=== PATIENT | female | born 1950 | race Hispanic/Latino ===

== ENCOUNTER 2017-04-12 20:35 | Observation (INO) | payer MEDICARE ==
[~2017-04-12] VITALS: Ht 157.5 cm; Wt 69.4 kg
[2017-04-12] MEDS ORDERED: ASPIRIN 325 MG TABLET ONE (20:45)
[2017-04-12] MEDS ORDERED: ONDANSETRON HCL 4 MG/2 ML VIAL ONE (20:49)
[2017-04-12 20:58] LABS: BASOPHILS % (AUTO) 0.7 % (0.0-5.0); EOSINOPHILS % (AUTO) 3.3 % (0.0-8.0); HEMATOCRIT 40.1 % (36-48); LYMPHOCYTES % (AUTO) 41.1 % (21.0-51.0); MEAN CORPUSCULAR HEMOGLOBIN 30.9 pg (27.0-33.0); MEAN CORPUSCULAR HGB CONC 34.8 g/dL (32.0-36.0); MEAN CORPUSCULAR VOLUME 88.9 fL (79-99); MONOCYTES % (AUTO) 9.5 % (3.0-13.0); NEUTROPHILS % (AUTO) 45.4 % (40.0-77.0); PLATELET COUNT (AUTO) 241 K/uL (130-400); RED BLOOD CELL COUNT(AUTO) 4.51 MIL/uL (4.00-5.50); RED CELL DISTRIBUTION WIDTH 14.2 % (11.0-15.5); WHITE BLOOD COUNT (AUTO) 7.4 K/uL (4.8-10.8)
[2017-04-12 21:09] LABS: CREATININE 1.4 mg/dL (0.5-1.5); INR 0.92 (0.85-1.15); PARTIAL THROMBOPLASTIN TIME 23.6 SEC (26.3-35.5); POTASSIUM 3.3 mmol/L (3.5-5.1); PROTHROMBIN TIME 9.7 SEC (9.6-11.6)
[2017-04-12] MEDS ORDERED: NITROGLYCERIN 0.4 MG SL TAB SL ONE (21:14)
[2017-04-12 21:23] LABS: BILIRUBIN,TOTAL 0.3 mg/dL (0.2-1.0); CREATINE KINASE MB 1.5 ng/mL (0.5-3.6); TOTAL PROTEIN, SERUM 7.8 g/dL (6.0-8.3)
[2017-04-12] MEDS ORDERED: MORPHINE SULFATE 2 MG/ML 1ML SYG ONE (21:39)
[2017-04-12] MEDS ORDERED: MAG HYDROX/AL HYDROX/SIMETH ES 30 ML SUSP UDCUP ONE (22:14)
[2017-04-12] MEDS ORDERED: LIDOCAINE HCL 2% VISCOUS 15 ML UDCUP ONE (22:14)
[2017-04-12] MEDS ORDERED: IOPAMIDOL-370 75 ML VIAL IV ONE (22:46)
[2017-04-13] MEDS ORDERED: NITROGLYCERIN 1GM/1 INCH PACKET TD ONE ×2 (00:36→07:47)
[2017-04-13 02:45] LABS: CREATINE KINASE MB 1.6 ng/mL (0.5-3.6)
[2017-04-13] MEDS: NITROGLYCERIN 1GM/1 INCH PACKET TD SCH ×3 (06:00→16:55)
[2017-04-13] MEDS ORDERED: POTASSIUM CHLORIDE 20MEQ/100ML 100 ML IV PRN (07:45)
[2017-04-13] MEDS ORDERED: NITROGLYCERIN 0.4 MG SL TAB SL PRN (07:45)
[2017-04-13] MEDS ORDERED: NITROGLYCERIN 1GM/1 INCH PACKET TD SCH (07:45)
[2017-04-13] MEDS ORDERED: POTASSIUM CHLORIDE 20 MEQ ERTAB PO PRN (07:45)
[2017-04-13] MEDS ORDERED: POTASSIUM CHLORIDE 10% ELIXIR 20 MEQ/15 ML UDCUP PO PRN (07:45)
[2017-04-13] MEDS ORDERED: LIDOCAINE HCL-MPF 1% 2ML VIAL IVP PRN (07:45)
[2017-04-13] MEDS ORDERED: ONDANSETRON HCL 4 MG/2 ML VIAL IV PRN (07:45)
[2017-04-13] MEDS ORDERED: ACETAMINOPHEN 325 MG TAB PO PRN (07:45)
[2017-04-13] MEDS: FAMOTIDINE 20MG TAB 20 MG TAB PO SCH ×2 (09:00→20:42)
[2017-04-13] MEDS: ASPIRIN 325 MG TABLET PO SCH ×2 (09:00)
[2017-04-13] MEDS: ENOXAPARIN SODIUM 40 MG/0.4 ML SYRINGE SQ SCH (09:00)
[2017-04-13] MEDS: METOPROLOL TARTRATE 25 MG TAB PO SCH ×2 (09:00→20:42)
[2017-04-13] MEDS ORDERED: ASPIRIN 325 MG TABLET ONE (09:03)
[2017-04-13 09:36] LABS: CREATINE KINASE, TOTAL 173 U/L (21-232); MYOGLOBIN 27 ng/mL (10-92); TROPONIN I < 0.04 ng/mL (0.00-0.06)
[2017-04-13] MEDS ORDERED: ACETAMINOPHEN 325 MG TAB ONE (13:41)
[2017-04-13 14:00] VITALS: BP 122/67
[2017-04-13] MEDS ORDERED: LEVO100T4 PO (15:07)
[2017-04-13] MEDS ORDERED: ASPI-1197 PO (15:07)
[2017-04-13] MEDS ORDERED: VENL75TA63 PO (15:07)
[2017-04-13 16:00] VITALS: BP 105/52
[2017-04-13 19:16] VITALS: BP 129/67
[2017-04-13] MEDS: ACETAMINOPHEN 325 MG TAB PO PRN (19:40)
[2017-04-13 23:19] VITALS: BP 131/73
[2017-04-14 03:36] VITALS: BP 121/66
[2017-04-14 04:28] LABS: HEMATOCRIT 38.8 % (36-48); MEAN CORPUSCULAR HEMOGLOBIN 30.5 pg (27.0-33.0); MEAN CORPUSCULAR HGB CONC 34.2 g/dL (32.0-36.0); MEAN CORPUSCULAR VOLUME 89.2 fL (79-99); PLATELET COUNT (AUTO) 216 K/uL (130-400); RED BLOOD CELL COUNT(AUTO) 4.35 MIL/uL (4.00-5.50); RED CELL DISTRIBUTION WIDTH 13.8 % (11.0-15.5); WHITE BLOOD COUNT (AUTO) 8.2 K/uL (4.8-10.8)
[2017-04-14 04:50] LABS: ALBUMIN 3.4 g/dL (3.5-5.0); BILIRUBIN,TOTAL 0.5 mg/dL (0.2-1.0); CREATININE 0.8 mg/dL (0.5-1.5); POTASSIUM 3.9 mmol/L (3.5-5.1); TOTAL PROTEIN, SERUM 6.8 g/dL (6.0-8.3)
[2017-04-14 06:15] LABS: BAND NEUTROPHILS % (MANUAL) 3 % (0-2); EOSINOPHILS % (MANUAL) 2 % (1-6); LYMPHOCYTES % (MANUAL) 28 % (22-44); MONOCYTES % (MANUAL) 7 % (2-9); SEGMENTED NEUTROPHILS % 60 % (40-70)
[2017-04-14 06:16] LABS: MAN.DIFF COMMENT-IMPRESSION MANUAL DIFFERENTIAL; PLATELET MORPHOLOGY COMMENT ADEQUATE
[2017-04-14] MEDS: NITROGLYCERIN 1GM/1 INCH PACKET TD SCH ×4 (06:27→17:51)
[2017-04-14 07:53] VITALS: BP 120/60
[2017-04-14] MEDS: ASPIRIN 325 MG TABLET PO SCH ×2 (09:00→09:22)
[2017-04-14] MEDS: FAMOTIDINE 20MG TAB 20 MG TAB PO SCH ×2 (09:22→20:48)
[2017-04-14] MEDS: METOPROLOL TARTRATE 25 MG TAB PO SCH ×2 (09:22→21:00)
[2017-04-14] MEDS: ACETAMINOPHEN 325 MG TAB PO PRN ×3 (09:23→20:45)
[2017-04-14] MEDS: ENOXAPARIN SODIUM 40 MG/0.4 ML SYRINGE SQ SCH (09:24)
[2017-04-14 11:44] VITALS: BP 114/62
[2017-04-14 16:00] VITALS: BP 112/55
[2017-04-14 20:00] VITALS: BP 104/62
[2017-04-14 23:42] VITALS: BP 131/59
[2017-04-15 04:01] VITALS: BP 139/69
[2017-04-15] MEDS: NITROGLYCERIN 1GM/1 INCH PACKET TD SCH ×4 (06:00→18:00)
[2017-04-15 07:50] VITALS: BP 126/62
[2017-04-15] MEDS: ASPIRIN 325 MG TABLET PO SCH ×2 (08:30→08:31)
[2017-04-15] MEDS: FAMOTIDINE 20MG TAB 20 MG TAB PO SCH ×2 (08:32→21:07)
[2017-04-15] MEDS: METOPROLOL TARTRATE 25 MG TAB PO SCH ×2 (08:32→21:07)
[2017-04-15] MEDS: ACETAMINOPHEN 325 MG TAB PO PRN ×2 (08:32→18:23)
[2017-04-15] MEDS: ENOXAPARIN SODIUM 40 MG/0.4 ML SYRINGE SQ SCH (08:33)
[2017-04-15 12:11] VITALS: BP 114/66
[2017-04-15 16:00] VITALS: BP 116/67
[2017-04-15 19:34] VITALS: BP 116/69
[2017-04-15 23:40] VITALS: BP 133/77
[2017-04-16 03:49] VITALS: BP 119/61
[2017-04-16] MEDS: NITROGLYCERIN 1GM/1 INCH PACKET TD SCH ×3 (06:00→12:00)
[2017-04-16 08:00] VITALS: BP 111/64
[2017-04-16] MEDS: ASPIRIN 325 MG TABLET PO SCH ×2 (09:00→09:53)
[2017-04-16] MEDS: METOPROLOL TARTRATE 25 MG TAB PO SCH (09:53)
[2017-04-16] MEDS: FAMOTIDINE 20MG TAB 20 MG TAB PO SCH (09:54)
[2017-04-16] MEDS: ENOXAPARIN SODIUM 40 MG/0.4 ML SYRINGE SQ SCH (09:55)
[2017-04-16 11:38] VITALS: BP 118/65
== END 2017-04-16 14:45 | disposition home or self-care (01) ==
LOC: EDH 20:35 → EDHIP 04-13 00:34 → 2AH 04-13 14:03
PROVIDERS: ADMIT Internal Medicine; ATTEND Internal Medicine
DX: R07.89 Other chest pain (principal); E03.9 Hypothyroidism, unspecified; I51.9 Heart disease, unspecified; F32.9 Major depressive disorder, single episode, unspecified; Z95.1 Presence of aortocoronary bypass graft; Z82.49 Family history of ischemic heart disease and other diseases of the circulatory system; Z90.710 Acquired absence of both cervix and uterus; Z90.49 Acquired absence of other specified parts of digestive tract
CPT/HCPCS: 36415 ×3; 71045; 71275; 74176; 80053 ×2; 82150; 82550 ×3; 82553 ×3; 83690 ×2; 83874 ×3; 84484 ×3; 85025 ×2; 85378; 85610; 85730; 86677; 93005 ×4; 93306; 96372 ×3; 96374; 99285; G0378 ×86; J1650 ×3; J2405 ×2; Q9967

== ENCOUNTER 2020-01-10 16:21 | Emergency (ER) | payer MEDICARE ==
[~2020-01-10 16:21] MED LIST: ASPI-1197 PO; LEVO100T4 PO; VENL-61 PO
[2020-01-10] MEDS ORDERED: ASPIRIN 325 MG TABLET ONE (17:08)
[2020-01-10 17:21] LABS: BASOPHILS % (AUTO) 0.6 % (0.0-5.0); EOSINOPHILS % (AUTO) 3.2 % (0.0-8.0); HEMATOCRIT 37.8 % (36-48); LYMPHOCYTES % (AUTO) 28.6 % (21.0-51.0); MEAN CORPUSCULAR HEMOGLOBIN 30.2 pg (27.0-33.0); MEAN CORPUSCULAR HGB CONC 33.9 g/dL (32.0-36.0); MEAN CORPUSCULAR VOLUME 89.2 fL (79-99); MONOCYTES % (AUTO) 8.8 % (3.0-13.0); NEUTROPHILS % (AUTO) 58.7 % (40.0-77.0); PLATELET COUNT (AUTO) 232 K/uL (130-400); RED BLOOD CELL COUNT(AUTO) 4.24 MIL/uL (4.00-5.50); RED CELL DISTRIBUTION WIDTH 13.1 % (11.0-15.5); WHITE BLOOD COUNT (AUTO) 7.2 K/uL (4.8-10.8)
[2020-01-10 17:29] LABS: INR 0.95 (0.85-1.15); PARTIAL THROMBOPLASTIN TIME 23.1 SEC (26.3-35.5); PROTHROMBIN TIME 10.3 SEC (9.6-11.6)
[2020-01-10 17:31] LABS: CREATININE 0.7 mg/dL (0.5-1.5); POTASSIUM 3.3 mmol/L (3.5-5.1)
[2020-01-10 17:36] LABS: ALBUMIN 3.6 g/dL (3.5-5.0); BILIRUBIN,TOTAL 0.4 mg/dL (0.2-1.0); TOTAL PROTEIN, SERUM 7.1 g/dL (6.0-8.3)
[2020-01-10 17:58] LABS: APPEARANCE,URINE Clear (CLEAR); BILIRUBIN,URINE Negative (NEGATIVE); COLOR,URINE Yellow (YELLOW); GLUCOSE, URINE (UA) Negative (NEGATIVE); KETONES,URINE Negative (NEGATIVE); LEUKOCYTE ESTERASE ,URINE Trace (NEGATIVE); NITRATE,URINE Negative (NEGATIVE); OCCULT BLOOD,URINE Negative (NEGATIVE); PH,URINE 6.5 (5.0-8.0); PROTEIN,URINE Negative (NEGATIVE); UROBILINOGEN,URINE 0.2 mg/dL (0.2-1.0)
[2020-01-10 18:08] LABS: B-TYPE NATRIURETIC PEPTIDE 35 pg/mL (0-100)
[2020-01-10 18:36] LABS: BACTERIA,URINE Few /HPF (None Seen); MUCUS,URINE Few LPF (None Seen); RBC,URINE 0-1 /HPF (0-1); SQUAMOUS EPITHELIAL CELL,UR Few /HPF (0-2)
[2020-01-10] MEDS ORDERED: POTASSIUM BICARB/CIT AC 25 MEQ TABLET.EFF ONE (19:59)
== END 2020-01-10 20:10 | disposition home or self-care (01) ==
LOC: EDH 16:21
DX: R07.89 Other chest pain (principal); E78.5 Hyperlipidemia, unspecified; E78.00 Pure hypercholesterolemia, unspecified; Z90.49 Acquired absence of other specified parts of digestive tract; Z90.710 Acquired absence of both cervix and uterus; Z88.8 Allergy status to other drugs, medicaments and biological substances
CPT/HCPCS: 36415; 71045; 80053; 81001; 82550; 83880; 84484; 85025; 85610; 85730; 93005

== ENCOUNTER 2020-02-21 14:33 | Emergency (ER) | payer OTHER, MEDICARE ==
[2020-02-21] MEDS ORDERED: OCTYL 2-CYANOACRYLATE 1 EACH TP ONE (15:22)
[2020-02-21] MEDS ORDERED: TETANUS/DIPHTHERIA TOXOID [ADULT] 0.5 ML VIAL IM ONE (15:22)
== END 2020-02-21 15:34 | disposition home or self-care (01) ==
LOC: EDH 14:33
DX: S01.81XA Laceration without foreign body of other part of head, initial encounter (principal); E78.00 Pure hypercholesterolemia, unspecified; Z90.49 Acquired absence of other specified parts of digestive tract; Z90.710 Acquired absence of both cervix and uterus; Z88.8 Allergy status to other drugs, medicaments and biological substances; X58.XXXA Exposure to other specified factors, initial encounter; Y93.89 Activity, other specified; Y92.89 Other specified places as the place of occurrence of the external cause; Y99.8 Other external cause status
CPT/HCPCS: 12011; 90471; 90714

== ENCOUNTER 2021-02-10 13:17 | Emergency (ER) | payer OTHER, MEDICARE ==
[~2021-02-10] VITALS: Ht 157.5 cm; Wt 72.6 kg
[~2021-02-10 13:17] MED LIST changes: +VENL-191 PO; -VENL-61 PO
[2021-02-10 13:54] VITALS: BP 126/71
[2021-02-10] MEDS ORDERED: HYDROCODONE/ACETAMINOPHEN 5/325 MG TAB PO SCH (14:00)
[2021-02-10] MEDS ORDERED: MELO7.5T12 PO (14:03)
== END 2021-02-10 14:18 | disposition home or self-care (01) ==
LOC: EDH 13:17
DX: S93.491A Sprain of other ligament of right ankle, initial encounter (principal); F32.A Depression, unspecified; E03.9 Hypothyroidism, unspecified; Z79.899 Other long term (current) drug therapy; Z95.1 Presence of aortocoronary bypass graft; Z88.8 Allergy status to other drugs, medicaments and biological substances; W01.0XXA Fall on same level from slipping, tripping and stumbling without subsequent striking against object, initial encounter; Y93.89 Activity, other specified; Y92.89 Other specified places as the place of occurrence of the external cause; Y99.8 Other external cause status
CPT/HCPCS: 73610; 73630

== ENCOUNTER 2021-05-02 16:09 | Emergency (ER) | payer OTHER, MEDICARE ==
[~2021-05-02] VITALS: Ht 157.5 cm; Wt 72.6 kg
[~2021-05-02 16:09] MED LIST changes: +MELO7.5T12 PO
[2021-05-02] MEDS ORDERED: IBUPROFEN 600 MG TABLET ONE (16:54)
[2021-05-02] MEDS ORDERED: IBUPROFEN 600 MG TABLET PO SCH (17:00)
[2021-05-02] MEDS ORDERED: IBUP-2070 PO (17:09)
[2021-05-02] MEDS ORDERED: TRAM50TA2 PO (17:09)
[2021-05-02 17:20] VITALS: BP 136/76
== END 2021-05-02 17:23 | disposition home or self-care (01) ==
LOC: EDH 16:09
DX: M79.671 Pain in right foot (principal); F32.9 Major depressive disorder, single episode, unspecified; E03.9 Hypothyroidism, unspecified; Z90.710 Acquired absence of both cervix and uterus; Z90.49 Acquired absence of other specified parts of digestive tract; Z95.1 Presence of aortocoronary bypass graft; Z88.8 Allergy status to other drugs, medicaments and biological substances; Z79.82 Long term (current) use of aspirin; Z79.899 Other long term (current) drug therapy
CPT/HCPCS: 73610; 73630

== ENCOUNTER 2021-09-25 07:04 | Emergency (ER) | payer OTHER, MEDICARE ==
[~2021-09-25] VITALS: Ht 157.5 cm; Wt 68.0 kg
[~2021-09-25 07:04] MED LIST changes: +IBUP-2070 PO; +TRAM50TA2 PO
[2021-09-25 08:06] LABS: APPEARANCE,URINE CLOUDY (CLEAR); BILIRUBIN,URINE NEGATIVE (NEGATIVE); COLOR,URINE YELLOW (YELLOW); GLUCOSE, URINE (UA) NEGATIVE (NEGATIVE); KETONES,URINE NEGATIVE (NEGATIVE); LEUKOCYTE ESTERASE ,URINE LARGE (NEGATIVE); NITRATE,URINE NEGATIVE (NEGATIVE); OCCULT BLOOD,URINE SMALL (NEGATIVE); PH,URINE 5.5 (5.0-8.0); PROTEIN,URINE NEGATIVE (NEGATIVE); UROBILINOGEN,URINE 0.2 mg/dL (0.2-1.0)
[2021-09-25 08:20] LABS: WBC,URINE 26-50 /HPF (0-1)
[2021-09-25 08:21] LABS: BACTERIA,URINE Moderate /HPF (None Seen)
[2021-09-25 08:22] LABS: POTASSIUM 3.6 mmol/L (3.5-5.1)
[2021-09-25 08:23] LABS: CREATININE 0.9 mg/dL (0.5-1.5)
[2021-09-25 08:24] LABS: ALBUMIN 3.7 g/dL (3.5-5.0); TOTAL PROTEIN, SERUM 7.2 g/dL (6.0-8.3)
[2021-09-25 08:45] LABS: HEMATOCRIT 37.7 % (36-48); MEAN CORPUSCULAR HEMOGLOBIN 29.4 pg (27.0-33.0); MEAN CORPUSCULAR HGB CONC 33.4 g/dL (32.0-36.0); MEAN CORPUSCULAR VOLUME 87.9 fL (79-99); RED BLOOD CELL COUNT(AUTO) 4.29 MIL/uL (4.00-5.50); RED CELL DISTRIBUTION WIDTH 13.9 % (11.0-15.5); WHITE BLOOD COUNT (AUTO) 6.6 K/uL (4.8-10.8)
[2021-09-25] MEDS ORDERED: 0.9%NACL 1000ML 1,000 ML IV ONE (09:00)
[2021-09-25] MEDS ORDERED: KETOROLAC 15MG/ML VIAL (15MG/ML) IV ONE (09:00)
[2021-09-25] MEDS ORDERED: IBUP-2070 PO (10:26)
[2021-09-25] MEDS ORDERED: D-ME118S47 PO (10:26)
[2021-09-25] MEDS ORDERED: ACETAMINOPHEN 500 MG TABLET PO ONE (10:30)
[2021-09-25 10:36] VITALS: BP 140/72
== END 2021-09-25 10:57 | disposition home or self-care (01) ==
LOC: EDH 07:04
DX: U07.1 COVID-19 (principal); F32.A Depression, unspecified; E03.9 Hypothyroidism, unspecified; E86.0 Dehydration; Z90.89 Acquired absence of other organs; Z98.890 Other specified postprocedural states; Z90.49 Acquired absence of other specified parts of digestive tract; Z79.899 Other long term (current) drug therapy; Z79.82 Long term (current) use of aspirin; Z88.8 Allergy status to other drugs, medicaments and biological substances
CPT/HCPCS: 36415; 71045; 80053; 81001; 83605; 84484; 85027; 87040; 87088; 87635; 87804; 93005; 96361; 96374; C9803; J1885; J7030

== ENCOUNTER 2022-01-19 18:39 | Emergency (ER) | payer OTHER, MEDICARE ==
[~2022-01-19] VITALS: Ht 157.5 cm; Wt 63.5 kg
[~2022-01-19 18:39] MED LIST changes: -ASPI-1197 PO; -IBUP-2070 PO; -MELO7.5T12 PO; -TRAM50TA2 PO; -VENL-191 PO; +VENL150T3 PO
[2022-01-19 18:44] VITALS: BP 132/65
[2022-01-19 19:19] LABS: INFLUENZA TYPE B NEGATIVE FOR TYPE B (NEG)
[2022-01-19 19:20] LABS: INFLUENZA TYPE A POSITIVE FOR TYPE A (NEG)
[2022-01-19] MEDS ORDERED: PRED50TA2 PO (19:51)
[2022-01-19] MEDS ORDERED: OSEL75 PO (19:51)
[2022-01-19] MEDS ORDERED: ACETAMINOPHEN 500 MG TABLET PO ONE (20:00)
[2022-01-19] MEDS ORDERED: OSELTAMIVIR PHOSPHATE 75 MG CAP PO SCH (20:00)
[2022-01-19 20:03] LABS: BASOPHILS % (AUTO) 0.5 % (0.0-5.0); EOSINOPHILS % (AUTO) 1.1 % (0.0-8.0); LYMPHOCYTES % (AUTO) 9.3 % (21.0-51.0); MEAN CORPUSCULAR HEMOGLOBIN 30.3 pg (27.0-33.0); MEAN CORPUSCULAR HGB CONC 34.2 g/dL (32.0-36.0); MEAN CORPUSCULAR VOLUME 88.6 fL (79-99); MONOCYTES % (AUTO) 12.8 % (3.0-13.0); PLATELET COUNT (AUTO) 216 K/uL (130-400); RED BLOOD CELL COUNT(AUTO) 4.29 MIL/uL (4.00-5.50); RED CELL DISTRIBUTION WIDTH 13.3 % (11.0-15.5); WHITE BLOOD COUNT (AUTO) 6.6 K/uL (4.8-10.8)
[2022-01-19 20:12] LABS: CREATININE 0.9 mg/dL (0.5-1.5); POTASSIUM 3.4 mmol/L (3.5-5.1)
[2022-01-19 20:17] LABS: ALBUMIN 3.8 g/dL (3.5-5.0); TOTAL PROTEIN, SERUM 7.9 g/dL (6.0-8.3)
== END 2022-01-19 20:33 | disposition home or self-care (01) ==
LOC: EDH 18:39
DX: J09.X2 Influenza due to identified novel influenza A virus with other respiratory manifestations (principal); M19.041 Primary osteoarthritis, right hand; E78.00 Pure hypercholesterolemia, unspecified; Z95.1 Presence of aortocoronary bypass graft; Z20.822 Contact with and (suspected) exposure to COVID-19
CPT/HCPCS: 99284; 71045; 87635; 80053; 85025; 87804 ×2; 36415; C9803

== ENCOUNTER 2023-02-05 16:53 | Emergency (ER) | payer OTHER, MEDICARE ==
[~2023-02-05] VITALS: Ht 157.5 cm; Wt 74.4 kg
[~2023-02-05 16:53] MED LIST changes: +OSEL75 PO; +PRED50TA2 PO
[2023-02-05] MEDS ORDERED: TRAM50TA4 PO (22:07)
[2023-02-05] MEDS ORDERED: MELO10CA3 PO (22:07)
[2023-02-05] MEDS ORDERED: TRAMADOL HCL 50 MG TABLET PO ONE (22:30)
[2023-02-05 22:37] VITALS: BP 142/63; PULSE 67; RESP 16; O2SAT 98
== END 2023-02-05 22:45 | disposition home or self-care (01) ==
LOC: EDH 16:53
DX: M25.562 Pain in left knee (principal); E78.00 Pure hypercholesterolemia, unspecified; Z79.52 Long term (current) use of systemic steroids; Z79.890 Hormone replacement therapy; Z95.1 Presence of aortocoronary bypass graft
CPT/HCPCS: 29505; 73562

== ENCOUNTER 2023-09-09 12:36 | Emergency (ER) | payer OTHER, MEDICARE ==
[~2023-09-09] VITALS: Ht 157.5 cm; Wt 74.4 kg
[~2023-09-09 12:36] MED LIST changes: +MELO10CA3 PO; +TRAM50TA4 PO
[2023-09-09 13:41] LABS: BASOPHILS # (AUTO) 0.02 K/uL (0.00-0.20); BASOPHILS % (AUTO) 0.2 % (0.0-5.0); EOSINOPHILS # (AUTO) 0.02 K/uL (0.00-0.70); EOSINOPHILS % (AUTO) 0.2 % (0.0-8.0); HEMATOCRIT 38.7 % (36-48); IMMATURE GRANULOCYTE ABSOLUTE 0.04 K/uL (0-1); LYMPHOCYTES # (AUTO) 0.5 K/uL (1.0-4.8); LYMPHOCYTES % (AUTO) 3.9 % (21.0-51.0); MEAN CORPUSCULAR HEMOGLOBIN 30.7 pg (27.0-33.0); MEAN CORPUSCULAR HGB CONC 34.9 g/dL (32.0-36.0); MONOCYTES # (AUTO) 0.4 K/uL (0.1-1.0); MONOCYTES % (AUTO) 3.1 % (3.0-13.0); NEUTROPHILS # (AUTO) 11.1 K/uL (1.8-7.7); NEUTROPHILS % (AUTO) 92.3 % (40.0-77.0); PLATELET COUNT (AUTO) 212 K/uL (130-400); RED CELL DISTRIBUTION WIDTH 12.9 % (11.0-15.5)
[2023-09-09 13:58] LABS: CREATININE 0.9 mg/dL (0.5-1.0); POTASSIUM 3.8 mmol/L (3.5-5.1)
[2023-09-09 14:13] LABS: ALBUMIN 3.8 g/dL (3.5-5.0); BILIRUBIN,DIRECT 0.2 mg/dL (0.0-0.3); BILIRUBIN,TOTAL 0.7 mg/dL (0.2-1.0); TOTAL PROTEIN, SERUM 6.9 g/dL (6.0-8.3)
[2023-09-09] MEDS: ONDANSETRON 4MG INJ IVP ONE (14:30)
[2023-09-09] MEDS: MORPHINE 4 MG SYG IVP ONE (14:30)
[2023-09-09] MEDS ORDERED: ONDA-243 PO (15:29)
[2023-09-09 15:49] LABS: APPEARANCE,URINE CLEAR (CLEAR); BILIRUBIN,URINE NEGATIVE (NEGATIVE); COLOR,URINE YELLOW (YELLOW); GLUCOSE, URINE (UA) NEGATIVE (NEGATIVE); KETONES,URINE NEGATIVE (NEGATIVE); LEUKOCYTE ESTERASE ,URINE 25 Leu/uL (NEGATIVE); NITRATE,URINE NEGATIVE (NEGATIVE); OCCULT BLOOD,URINE NEGATIVE (NEGATIVE); PH,URINE 5.5 (5.0-8.0); PROTEIN,URINE NEGATIVE (NEGATIVE); UROBILINOGEN,URINE 0.2 mg/dL (0.2-1.0)
[2023-09-09 15:56] LABS: ADD UA MICROSCOPIC YES
[2023-09-09 16:06] VITALS: BP 114/66; PULSE 84; RESP 18; O2SAT 97
[2023-09-09 16:07] LABS: MUCUS,URINE RARE LPF (None Seen); SQUAMOUS EPITHELIAL CELL,UR RARE /HPF (0-2)
== END 2023-09-09 16:18 | disposition home or self-care (01) ==
LOC: EDH 12:36
DX: R10.13 Epigastric pain (principal); E78.00 Pure hypercholesterolemia, unspecified; Z79.899 Other long term (current) drug therapy; Z98.890 Other specified postprocedural states; Z88.8 Allergy status to other drugs, medicaments and biological substances
CPT/HCPCS: 99284; 74176; 96374; 96375; 80076; 84484; 80048; 83690; 85025; 81001; 36415; 93005; J2405; J2270

== ENCOUNTER 2023-11-12 11:27 | Emergency (ER) | payer OTHER, MEDICARE ==
[~2023-11-12] VITALS: Ht 157.5 cm; Wt 72.6 kg
[~2023-11-12 11:27] MED LIST changes: +ONDA-243 PO
[2023-11-12 11:31] VITALS: PULSE 69
[2023-11-12 12:08] LABS: BASOPHILS # (AUTO) 0.05 K/uL (0.00-0.20); BASOPHILS % (AUTO) 0.9 % (0.0-5.0); EOSINOPHILS # (AUTO) 0.18 K/uL (0.00-0.70); EOSINOPHILS % (AUTO) 3.3 % (0.0-8.0); HEMATOCRIT 41.8 % (36-48); IMMATURE GRANULOCYTE ABSOLUTE 0.01 K/uL (0-1); LYMPHOCYTES # (AUTO) 1.7 K/uL (1.0-4.8); MEAN CORPUSCULAR HGB CONC 33.5 g/dL (32.0-36.0); MEAN CORPUSCULAR VOLUME 89.5 fL (79-99); MONOCYTES # (AUTO) 0.3 K/uL (0.1-1.0); MONOCYTES % (AUTO) 6.3 % (3.0-13.0); NEUTROPHILS # (AUTO) 3.2 K/uL (1.8-7.7); NEUTROPHILS % (AUTO) 58.3 % (40.0-77.0); PLATELET COUNT (AUTO) 214 K/uL (130-400); RED BLOOD CELL COUNT(AUTO) 4.67 MIL/uL (4.00-5.50); RED CELL DISTRIBUTION WIDTH 12.7 % (11.0-15.5); WHITE BLOOD COUNT (AUTO) 5.4 K/uL (4.8-10.8)
[2023-11-12 12:18] LABS: CREATININE 0.7 mg/dL (0.5-1.0); POTASSIUM 3.9 mmol/L (3.5-5.1)
[2023-11-12] MEDS: 0.9%NACL 1000ML 1,000 ML IV ONE (14:22)
[2023-11-12] MEDS: KETOROLAC 30MG VIAL (30MG/ML) IVP ONE (14:23)
[2023-11-12] MEDS: Solu-medROL 125MG VIAL IVP ONE (14:23)
[2023-11-12] MEDS: CYCLOBENZAPRINE HCL 10 MG TABLET PO ONE (14:23)
[2023-11-12] MEDS: METOCLOPRAMIDE 10 MG/2 ML VIAL IVP ONE (14:23)
[2023-11-12 14:39] VITALS: RESP 16; O2SAT 98
[2023-11-12 15:42] VITALS: BP 165/66
[2023-11-12] MEDS ORDERED: BUTA-271 PO (15:45)
== END 2023-11-12 16:04 | disposition home or self-care (01) ==
LOC: EDH 11:27
DX: G44.209 Tension-type headache, unspecified, not intractable (principal); G43.909 Migraine, unspecified, not intractable, without status migrainosus; E78.00 Pure hypercholesterolemia, unspecified; F32.A Depression, unspecified; K21.9 Gastro-esophageal reflux disease without esophagitis; Z88.8 Allergy status to other drugs, medicaments and biological substances; Z79.899 Other long term (current) drug therapy; Z90.49 Acquired absence of other specified parts of digestive tract; Z90.710 Acquired absence of both cervix and uterus; Z95.1 Presence of aortocoronary bypass graft; Z98.890 Other specified postprocedural states
CPT/HCPCS: 99284; 96374; 70450; 96375; 96361; 80048; 85025; 36415; J7030; J2919; J1885; J2765

== ENCOUNTER 2024-09-04 20:25 | Emergency (ER) | payer OTHER, MEDICARE ==
[~2024-09-04] VITALS: Ht 157.5 cm; Wt 74.8 kg
[~2024-09-04 20:25] MED LIST changes: +BUTA-271 PO
--- NOTE | 2024-09-04 21:00 | ERN ---
ED Note History of Present Illness Stated Complaint: C/O PAIN W/SWELLING TO LEFT WRIST AFTER FALL Chief Complaint: Wrist Pain/Injury Time Seen by MD: 20:30 Time Seen by Midlevel: 20:30 Dictation: The patient is a 74-year-old female with a history of vertigo, hypothyroidism, depression who presents to the emergency department with complaints of left wrist pain and left arm after a accidental fall around 30 minutes prior to arrival. Patient reports that she was walking backwards with her dog when she tripped on an object causing her to the fall to her left side. Patient reports she use her arm to break the fall. Denies any LOC, denies any head trauma, denies any use of blood thinners. Patient denies any neck pain, abdominal pain or chest pain, back pain, no other injuries reported. Allergies: Coded Allergies: promethazine (Unverified Allergy, Intermediate, ANXIETY, 02/21/18) Home Meds Active Scripts Meloxicam (Meloxicam) 15 Mg Tablet, 1 TAB PO DAILY for 10 Days, #15 TAB 0 Refills Prov:NEVIN PENNINGTON [employer] TABELER 09/04/24 Butalb/Acetaminophen/Caffeine (Esgic 50-325-40 mg Tablet) 50 Mg-325 Mg-40 Mg Tablet, 2 EACH PO Q4PRN for HEADACHE, #30 TAB TWO TABLETS BY MOUTH EVERY4 HOURS P.R.N. HEADACHE, MAXIMUM SIX TABLETS IN24 HOURS. Prov:LORENZA BROWNLEE NP 11/12/23 Ondansetron (Ondansetron Odt) 4 Mg Tab.rapdis, 4 MG PO BID for 5 Days, #10 TAB Prov:YOHANA MORAN MD 09/09/23 Meloxicam, Submicronized (Meloxicam) 10 Mg Capsule, 10 MG PO DAILY, #20 CAP Prov:REG MANTILLA MD 02/05/23 Tramadol Hcl (Tramadol HCl) 50 Mg Tablet, 50 MG PO QIDP PRN for PAIN, #12 TAB Prov:REG MANTILLA MD 02/05/23 Prednisone (Prednisone) 50 Mg Tablet, 50 MG PO DAILY for 5 Days, #5 TAB 0 Refills Prov:TAHMINA DUMONT MD 01/19/22 Oseltamivir Phosphate (Tamiflu) 75 Mg Cap, 75 MG PO BID for 5 Days, #10 CAP 0 Refills Prov:TAHMINA DUMONT MD 01/19/22 Reported Medications Venlafaxine HCl (Venlafaxine HCl ER) 150 Mg Tab.er.24, 150 MG PO HS 11/27/21 Levothyroxine Sodium (Synthroid 100 Mcg Tab) 100 Mcg Tablet, 100 MCG PO DAILY, TAB 04/13/17 Past Medical History Past Medical History: Depression, Hypothyroid, Other Additional Past Medical Hx: HX OF VERTIGO Surgical History: Hysterectomy, Cholecystectomy, CABG, Other Surgical History Other: NECK SX Family History: HTN Social History: Negative, Lives with family History: Not Applicable RN Note Reviewed/Agreed w/PFSH: Yes Review of System Dictation Constitutional: Negative for fever,chills, and weight loss Eyes: Negative for injury, pain,redness, and discharge ENT: Negative for injury,pain or swelling Cardiovascular: Negative for chest pain, palpitations, and edema Respiratory: Negative for shortness of breath, cough, and wheezing, Abdomen/GI: Negative for abdominal pain, nausea, vomiting, diarrhea, and constipation Back: Negative for injury and pain : Negative for injury, bleeding and discharge MS/Extremity: Positive for left wrist pain, left arm pain Skin: Negative for rash, and discoloration Neuro: Negative for headache, weakness, numbness, tingling, and seizure Psych: Negative for suicide ideation, homicidal ideation, and hallucinations Initial Vital Sign VS Vital Signs Date Time Temp Pulse Resp B/P (MAP) Pulse Ox O2 Delivery O2 Flow Rate FiO2 09/04/24 20:29 97.3 63 20 93/57 95 Room Air Physical Exam Dictation Vital Signs reviewed General Appearance: Alert, oriented x 3, no acute distress, well developed, nourished. Head and Face: non-traumatic. Eyes: PERRL, pink conjunctivas, eyelid no trauma, anterior chamber with arcus senilis. Ears: Pinnas intact and no signs of trauma or erythema ear canals clear and no discharge TM no erythema Nose: No discharge, no bleeding. Oropharynx: Mouth normal, tongue pink. pharynx clear,no erythema, tonsils no exudates, no abscesses noted, mucous membrane moist Neck: Supple, non-tender, no thyromegaly, no masses, no JVD, no bruits Breast:Deferred Chest:No tenderness, no crepitus, no paradoxical movement, no retractions Lungs:Clear, well-ventilated, symmetric, no rales, no wheezing, no rhonchi, no stridor, good breath sounds bilaterally Heart: Regular rate, regular rhythm, no murmur, no gallops Vascular: no peripheral edema, radial pulse 2 +bilateral Abdomen: Soft, positive bowel sounds, nondistended, no guarding, nontender, no rebound, no masses no hepatomegaly, no splenomegaly, no Garcia's sign, no hernias. Rectal: Deferred Genital: Deferred Neurological: Normal speech, motor function intact, sensory function intact Musculoskeletal: Neck nontender, full range of motion, back nontender, full range of motion, Extremities left wrist with the swelling noted, tenderness to left forearm, swelling to left hand, cap refill less than 2 seconds, patient able to wiggle fingers. Skin: Color pink, dry, no turgor, no rash, no lacerations, no abrasions, no contusions. Lymphatic: Deferred Results (Laboratory/Radiology) Laboratory/Radiology PATIENT: ELLIE DE SOUZA MR#: [id number] : 1950 SEX: F AGE: 74 LOCATION: [facility] ORDER 38 STATUS: REG ER REPORT#: [id number] SERVICE 36 REASON: swelling, pain ORDERING PHYSICIAN: NEVIN PENNINGTON [employer] TABELER PROCEDURE: WRST 3V LT - WRIST COMP 3+VWS LT There are fractures of the distal radius as well as ulnar styloid process both with dorsal angulation. No other fractures are seen. IMPRESSION: Wrist fracture. PATIENT: ELLIE DE SOUZA MR#: [id number] : 1950 SEX: F AGE: 74 LOCATION: [facility] ORDER 42 STATUS: REG ER REPORT#: [id number] SERVICE 41 REASON: fall, pain ORDERING PHYSICIAN: NEVIN PENNINGTON [employer] TABELER PROCEDURE: HAND 3V LT - HAND 3+VWS LT There are fractures of the distal radius as well as ulnar styloid process both with dorsal angulation. No other fractures are seen. IMPRESSION: Wrist fracture. PATIENT: ELLIE DE SOUZA MR#: [id number] : 1950 SEX: F AGE: 74 LOCATION: [facility] ORDER 38 STATUS: REG ER [facility] REPORT#: [id number] SERVICE 36 REASON: swelling, pain ORDERING PHYSICIAN: NEVIN PENNINGTON [employer] TABELER PROCEDURE: FORARML - FOREARM 2VWS LT There are fractures of the distal radius as well as ulnar styloid process both with dorsal angulation. No other fractures are seen. IMPRESSION: Wrist fracture. Labs Reviewed?: Yes ED Course ED Course Orders Procedure Category Date Status Time Wrist Comp 3+Vws Lt RAD 09/04/24 Resulted 20:37 Forearm 2vws Lt RAD 09/04/24 Resulted 20:37 Ondansetron 4mg Inj PHA 09/04/24 Complete (Zofran 4mg Inj) 21:00 Morphine 4mg Syg PHA 09/04/24 Complete (Morphine 4mg Syg) 21:00 Ketorolac PHA 09/04/24 Complete Tromethamine 15mg/Ml 21:00 0.9% Nacl 500ml PHA 09/04/24 Complete Iv.Soln (Ns 500ml 21:00 Hand 3+Vws Lt RAD 09/04/24 Resulted 20:42 Reverse Sugar Tong LUIS 09/04/24 In Process Splint 22:16 Hydrocodone/Apap PHA 09/04/24 Logged 5/325 ([place] 5/325mg) 23:30 Current Medications Medications (Trade) Dose Ordered Sig/Ashley Route PRN Reason Start Time Stop Time Status Last Admin Dose Admin Ketorolac Tromethamine (toRADol) 15 mg ONCE ONCE IV 09/04/24 21:00 09/04/24 21:01 DC 09/04/24 21:35 Morphine Sulfate (morPHINE 4MG SYG) 4 mg ONCE ONCE IVP 09/04/24 21:00 09/04/24 21:01 DC 09/04/24 21:35 Ondansetron HCl (zoFRAN 4MG INJ) 4 mg ONCE ONCE IVP 09/04/24 21:00 09/04/24 21:01 DC 09/04/24 21:35 Sodium Chloride 500 ml @ 0 mls/hr ONCE ONCE IV 09/04/24 21:00 09/04/24 21:01 DC 09/04/24 21:35 Vital Signs Date Time Temp Pulse Resp B/P (MAP) Pulse Ox O2 Delivery O2 Flow Rate FiO2 09/04/24 20:29 97.3 63 20 93/57 95 Room Air Medical Decision Making MDM The patient is a 74-year-old female with a history of vertigo, hypothyroidism, depression who presents to the emergency department with complaints of left wrist pain and left arm after a accidental fall around 30 minutes prior to arrival. Patient reports that she was walking backwards with her dog when she tripped on an object causing her to the fall to her left side. Patient reports she use her arm to break the fall. Denies any LOC, denies any head trauma, denies any use of blood thinners. Patient denies any neck pain, abdominal pain or chest pain, back pain, no other injuries reported X-ray showed a fractures of the distal radius and ulnar styloid process with dorsal angulation. No other fracture seen. Discussed case with Dr. Medina orthopedic on-call who states patient can follow up in the clinic. on physical exam patient with good radial pulse and good cap refill. Patient able to wiggle fingers. No open wounds. Patient splinted and instructed to follow up tomorrow with . Discharge instructions given to patients daughter as well. Patients blood pressure improved, no neurological deficits or any other obvious injuries. Discharge planning discussed with patient and family who agree to be discharge and follow up tomorrow. Differential diagnosis: Wrist fracture, hand fracture, forearm fracture, wrist sprain Need for hospitalization: Patient does not meet criteria for hospitalization. There are no social concerns with this patient. DX & DISP Disposition: Discharge Departure Impression: Primary Impression: Closed fracture distal radius and ulna Additional Impression: Wrist fracture, left Condition: Stable Scripts Hydrocodone/Acetaminophen (Hydrocodon-Acetaminophen 5-325) 5 Mg-325 Mg Tablet 1 TAB PO [id number] PRN for pain for 5 Days, #10 TAB 0 Refills Prov: NEVIN PENNINGTON [employer] TAB[employer]ER 09/04/24 Meloxicam (Meloxicam) 15 Mg Tablet 1 TAB PO DAILY for 10 Days, #15 TAB 0 Refills Prov: NEVIN PENNINGTON [employer] TAB[employer]ER 09/04/24 Additional Instructions: Your x-rays showed a wrist fracture. you will need to follow up with a bone specialist tomorrow. is aware that you will visit his office soon. Take medications as prescribed.Keep you splint until it is removed by the orthopedic (bone doctor) If you develop severe pain, decrease sensation or your skin changes color please return to ER. FOLLOW-UP WITH PRIMARY CARE PROVIDER IN 1 TO 2 DAYS. TAKE MEDICATIONS DIRECTED HERE IN THE EMERGENCY ROOM. OKAY TO CONTINUE HOME MEDICATIONS UNLESS OTHERWISE DISCUSSED DURING YOUR VISIT IN THE EMERGENCY ROOM TODAY. RETURN TO YOUR NEAREST EMERGENCY ROOM IF SYMPTOMS WORSEN OR IF THERE IS NO IMPROVEMENT. CALL 911 IF YOU NEED IMMEDIATE ASSISTANCE. TAKE TYLENOL OR MOTRIN [id number] NEEDED AND IF NO CONTRAINDICATIONS ARE PRESENT. INCREASE ORAL HYDRATION. A WOUND CULTURE OR URINE CULTURE WAS ORDERED HERE IN THE EMERGENCY ROOM DEPARTMENT PLEASE FOLLOW-UP WITH PRIMARY CARE PROVIDER AND ADVISE THEM TO GET REPEAT PORTS FROM OUR FACILITY. IF YOU HAD ANY FELICIA WRAP/SPLINTS THAT WERE APPLIED HERE, PLEASE DO NOT REMOVE THEM UNTIL YOU SEE YOUR PRIMARY CARE OR SPECIALTY. Referrals: GEORGE MONCADA MD (PCP) LADONNA MEDINA MD Time of Disposition: 22:30 I have reviewed the case, and I agree with, Diagnosis and Plan NEVIN PENNINGTON [facility] Sep 04, 2024 21:00
--- NOTE | 2024-09-04 21:15 | HMCIMG ---
There are fractures of the distal radius as well as ulnar styloid process both with dorsal angulation. No other fractures are seen. IMPRESSION: Wrist fracture.
--- NOTE | 2024-09-04 21:15 | HMCIMG ---
There are fractures of the distal radius as well as ulnar styloid process both with dorsal angulation. No other fractures are seen. IMPRESSION: Wrist fracture.
--- NOTE | 2024-09-04 21:15 | HMCIMG ---
There are fractures of the distal radius as well as ulnar styloid process both with dorsal angulation. No other fractures are seen. IMPRESSION: Wrist fracture.
[2024-09-04] MEDS: ketOROlac 15MG/ML VIAL (15MG/ML) IV ONE (21:35)
[2024-09-04] MEDS: ondanSETRON 4MG INJ IVP ONE (21:35)
[2024-09-04] MEDS: morPHINE 4 MG SYG IVP ONE (21:35)
[2024-09-04] MEDS: 0.9% NACL 500ML IV.SOLN 500 ML IV ONE (21:35)
[2024-09-04] MEDS ORDERED: MELO-108 PO (22:38)
[2024-09-04 23:03] VITALS: BP 124/80; PULSE 68; RESP 18; TEMP 98.4; O2SAT 98
[2024-09-04] MEDS ORDERED: HYDR-4060 PO (23:06)
[2024-09-04] MEDS: HYDROcodone/APAP 5/325 1 TAB TABLET PO ONE (23:12)
== END 2024-09-05 00:02 | disposition home or self-care (01) ==
LOC: EDH 20:25
DX: S52.502A Unspecified fracture of the lower end of left radius, initial encounter for closed fracture (principal); S52.612A Displaced fracture of left ulna styloid process, initial encounter for closed fracture; E03.9 Hypothyroidism, unspecified; F32.A Depression, unspecified; Z79.1 Long term (current) use of non-steroidal anti-inflammatories (NSAID); Z79.52 Long term (current) use of systemic steroids; Z79.890 Hormone replacement therapy; Z90.49 Acquired absence of other specified parts of digestive tract; Z90.710 Acquired absence of both cervix and uterus; Z95.1 Presence of aortocoronary bypass graft; W01.0XXA Fall on same level from slipping, tripping and stumbling without subsequent striking against object, initial encounter; Y93.01 Activity, walking, marching and hiking; Y92.89 Other specified places as the place of occurrence of the external cause; Y99.8 Other external cause status
CPT/HCPCS: 99283; 96374; 96375; 73090; 73130; 73110; 29125; J1885; J7040; J2405; J2270; 29105

== ENCOUNTER 2024-11-11 21:56 | Emergency (ER) | payer OTHER, MEDICARE ==
[~2024-11-11] VITALS: Ht 157.5 cm; Wt 73.5 kg
[~2024-11-11 21:56] MED LIST changes: +HYDR-4060 PO; +MELO-108 PO
--- NOTE | 2024-11-11 22:09 | ERN ---
ED Note History of Present Illness Stated Complaint: C/O PAIN TO RT KNEE, UPPER LIP, RT HAND/WRIST Chief Complaint: Mechanical Fall Time Seen by MD: 22:00 Dictation: This is a 74-year-old female who presented to the emergency room with complaints of a fall from standing on the right side of the body. She did not hit the head she is not on any blood thinners and no loss of consciousness. She stated that her right knee and right hand and wrist were hurting she also sustained an injury to the upper lip and hence she came into the ER for evaluation. No deformities noted. Patient has been falling quite frequently and losing balance in the past 1-1/2-2 years. Recently she had fallen and sustained a right wrist fracture. She received tetanus shot 2 years ago Temperature 97.9 pulse 73 respirations 20 blood pressure 183/77 with a pulse oximetry of 96% on room air Chronic medical problems include depression, hypothyroidism, history of vertigo, high cholesterol, coronary artery disease status post CABG and history of neck surgery Allergies: Coded Allergies: promethazine (Unverified Allergy, Intermediate, ANXIETY, 02/21/18) Home Meds Active Scripts Hydrocodone/Acetaminophen (Hydrocodon-Acetaminophen 5-325) 5 Mg-325 Mg Tablet, 1 TAB PO [id number] PRN for pain for 5 Days, #10 TAB 0 Refills Prov:NEVIN PENNINGTON [employer] 09/04/24 Meloxicam (Meloxicam) 15 Mg Tablet, 1 TAB PO DAILY for 10 Days, #15 TAB 0 Refills Prov:NEVIN PENNINGTON [employer]PER[employer] 09/04/24 Butalb/Acetaminophen/Caffeine (Esgic 50-325-40 mg Tablet) 50 Mg-325 Mg-40 Mg Tablet, 2 EACH PO Q4PRN for HEADACHE, #30 TAB TWO TABLETS BY MOUTH EVERY4 HOURS P.R.N. HEADACHE, MAXIMUM SIX TABLETS IN24 HOURS. Prov:LORENZA BROWNLEE NP 11/12/23 Ondansetron (Ondansetron Odt) 4 Mg Tab.rapdis, 4 MG PO BID for 5 Days, #10 TAB Prov:YOHANA MORAN MD 09/09/23 Meloxicam, Submicronized (Meloxicam) 10 Mg Capsule, 10 MG PO DAILY, #20 CAP Prov:REG MANTILLA MD 02/05/23 Tramadol Hcl (Tramadol HCl) 50 Mg Tablet, 50 MG PO QIDP PRN for PAIN, #12 TAB Prov:REG MANTILLA MD 02/05/23 Prednisone (Prednisone) 50 Mg Tablet, 50 MG PO DAILY for 5 Days, #5 TAB 0 Refills Prov:TAHMINA DUMONT MD 01/19/22 Oseltamivir Phosphate (Tamiflu) 75 Mg Cap, 75 MG PO BID for 5 Days, #10 CAP 0 Refills Prov:TAHMINA DUMONT MD 01/19/22 Reported Medications Venlafaxine HCl (Venlafaxine HCl ER) 150 Mg Tab.er.24, 150 MG PO HS 11/27/21 Levothyroxine Sodium (Synthroid 100 Mcg Tab) 100 Mcg Tablet, 100 MCG PO DAILY, TAB 04/13/17 Past Medical History Past Medical History: CAD, Depression, High Cholesterol, Hypothyroid, Other Additional Past Medical Hx: HX OF VERTIGO Surgical History: CABG, None Surgical History Other: NECK SX Family History: HTN Social History: Negative, Lives with family History: Not Applicable RN Note Reviewed/Agreed w/PFSH: Yes Review of System Dictation Constitutional: Negative for fever,chills, and weight loss Eyes: Negative for injury, pain,redness, and discharge ENT: Negative for injury,pain or swelling Cardiovascular: Negative for chest pain, palpitations, and edema Respiratory: Negative for shortness of breath, cough, and wheezing, Abdomen/GI: Negative for abdominal pain, nausea, vomiting, diarrhea, and constipation Back: Negative for injury and pain : Negative for injury, bleeding and discharge MS/Extremity: Positive for right knee injury and right hand and wrist Skin: Negative for rash, and discoloration Neuro: Negative for headache, weakness, numbness, tingling, and seizure Psych: Negative for suicide ideation, homicidal ideation, and hallucinations Initial Vital Sign VS Vital Signs Date Time Temp Pulse Resp B/P (MAP) Pulse Ox O2 Delivery O2 Flow Rate FiO2 11/11/24 21:59 97.9 73 20 183/77 96 Room Air 11/11/24 22:12 0 21 Physical Exam Dictation General: awake, alert, NAD Head/Face: Normocephalic, atraumatic upper lip lateral 1 thirds laceration linear diagonal about 1 inch with some oozing noted. It appears relatively clean with no debris or purulent drainage Eyes: PERRL, EOMI, vision at baseline ENT: oral cavity clear, TMs clear, no signs of infection Neck: Trachea midline, supple, no nuchal rigidity Cardiovascular: RRR, normal S1/S2, No MRGs, no JVD Respiratory: CTAB, no respiratory distress, No rales or wheezes Abdomen: Soft, non-tender, non-distended, normal bowel sounds, no guarding or rebound. Skin: Warm, dry, normal turgor, no rash MS/Extremity: Pulses equal, no cyanosis, neurovascular intact, FROM Neuro: COAx4, GCS 15, strength 5/5, CN 2-12 intact, normal cerebellar exam, normal gait, Psych: Normal behavior, mood, and affect normal Extremities-trace edema without any palpable cords, Homans sign is negative Results (Laboratory/Radiology) Laboratory/Radiology Laboratory Tests Test 11/11/24 22:13 11/11/24 22:20 White Blood Count 6.3 K/uL (4.8-10.8) Red Blood Count 4.18 MIL/uL (4.00-5.50) Hemoglobin 12.6 g/dL (12.0-16.0) Hematocrit 37.6 % (36-48) Mean Corpuscular Volume 90.0 fL (79-99) Mean Corpuscular Hemoglobin 30.1 pg (27.0-33.0) Mean Corpuscular Hemoglobin Concent 33.5 g/dL (32.0-36.0) Red Cell Distribution Width 13.9 % (11.0-15.5) Platelet Count 203 K/uL (130-400) Mean Platelet Volume 10.4 fL (7.5-10.5) Immature Granulocyte % (Auto) 0.0 % (0-1) Neutrophils (%) (Auto) 46.1 % (40.0-77.0) Lymphocytes (%) (Auto) 40.3 % (21.0-51.0) Monocytes (%) (Auto) 8.7 % (3.0-13.0) Eosinophils (%) (Auto) 4.3 % (0.0-8.0) Basophils (%) (Auto) 0.6 % (0.0-5.0) Neutrophils # (Auto) 2.9 K/uL (1.8-7.7) Lymphocytes # (Auto) 2.6 K/uL (1.0-4.8) Monocytes # (Auto) 0.6 K/uL (0.1-1.0) Eosinophils # (Auto) 0.27 K/uL (0.00-0.70) Basophils # (Auto) 0.04 K/uL (0.00-0.20) Absolute Immature Granulocyte (auto 0.00 K/uL (0-1) Nucleated Red Blood Cells 0.0 % (0.0-0.19) Sodium Level 138 mmol/L (136-145) Potassium Level 3.5 mmol/L (3.5-5.1) Chloride Level 102 mmol/L (101-111) Carbon Dioxide Level 30 mmol/L (21-32) Blood Urea Nitrogen 17 mg/dL (7-18) Creatinine 0.9 mg/dL (0.5-1.0) Glomerular Filtration Rate Calc 68 mL/min (>90) Random Glucose 95 mg/dL (70-105) Total Calcium 8.4 mg/dL (8.5-10.1) L Urine Color LIGHT-YELLOW (YELLOW) Urine Appearance CLEAR (CLEAR) Urine pH 6.0 (5.0-8.0) Urine Specific [place] 1.021 (1.001-1.031) Urine Protein NEGATIVE mg/dL (NEGATIVE) Urine Glucose (UA) NEGATIVE mg/dL (NEGATIVE) Urine Ketones NEGATIVE mg/dL (NEGATIVE) Urine Occult Blood NEGATIVE (NEGATIVE) Urine Nitrate NEGATIVE (NEGATIVE) Urine Bilirubin NEGATIVE mg/dL (NEGATIVE) Urine Urobilinogen 2.0 mg/dL (0.2-1.0) H Urine Leukocyte Esterase 500 Luna/uL (NEGATIVE) H Urine RBC 2-5 /HPF (0-1) H Urine WBC 11-25 /HPF (0-1) H Urine Squamous Epithelial Cells RARE /HPF (0-2) Urine Bacteria RARE /HPF (None Seen) Labs Reviewed?: Yes ED Course ED Course Orders Procedure Category Date Status Time Cbc With Differential LAB 11/11/24 Complete 22:01 Basic Metabolic Panel LAB 11/11/24 Complete 22:01 Urinalysis Profile LAB 11/11/24 Complete 22:01 Knee 3vws Rt RAD 11/11/24 Resulted 22:01 Wrist Comp 3+Vws Rt RAD 11/11/24 Resulted 22:01 Ice For Pain Control CPOE 11/11/24 Transmitted 22:01 Culture Urine AURA 11/11/24 In Process 22:38 Ketorolac PHA 11/12/24 In Process Tromethamine 30mg/Ml 00:00 Dermabond (Dermabond) PHA 11/11/24 Complete 00:00 Dermabond (Dermabond) PHA 11/11/24 Complete 23:43 Current Medications Medications (Trade) Dose Ordered Sig/Ashley Route PRN Reason Start Time Stop Time Status Last Admin Dose Admin Ketorolac Tromethamine (toRADol) 30 mg ONCE ONCE IM 11/12/24 00:00 11/12/24 00:01 11/11/24 23:45 Octyl Cyanoacrylate (Dermabond) 1 each ONCE ONCE TP 11/11/24 00:00 11/11/24 23:42 DC 11/11/24 23:45 Octyl Cyanoacrylate (Dermabond) 1 each STK-MED ONCE TP 11/11/24 23:43 11/11/24 23:44 DC Vital Signs Date Time Temp Pulse Resp B/P (MAP) Pulse Ox O2 Delivery O2 Flow Rate FiO2 11/11/24 22:12 97.9 73 20 183/77 96 Room Air* 0 21 11/11/24 21:59 97.9 73 20 183/77 96 Room Air We will perform diagnostic labs, imaging and administer medications according to the patient's complaint. Once the results are available, will review and personally interpreted the labs to rule out any acute life-threatening emergency the trach require immediate intervention and treatment. I will then re-evaluate the patient after treatment and diagnostic exams have return to determine whether the patient requires any further testing, can safely be discharged home or need further admission to hospital for additional treatment and evaluation. Reviewed labs CBC BNP 7 is with a normal limits we will repair the upper lip laceration and give a dose of Toradol for pain relief I had a long discussion with the patient and her family member at bedside and discuss the etiology of her falls. Patient had neck surgery in the past and also history of vertigo which could be contributing to her falls and loss of balance. I recommended vestibular therapy and gave her resources to discuss with her primary care physician. Patient and family verbalized full understanding Medical Decision Making MDM Differential diagnosis: Fracture, dislocation, sprain, contusion, heme arthrosis Rationale: Tests considered and ordered secondary to shared decision making include: Previous outside records reviewed: Old ER visits. Risk of complication and/or morbidity or mortality of patient management: None Medications-Per medication reconciliation Need for hospitalization: Patient does not meet criteria for hospitalization. Need for emergency major/minor surgery: No There are no social concerns with this patient. Prescription drug management Prescriptions will include symptomatic care Patient's prior external medical records from other ER visits were reviewed by me as indicated. Prior testing and results from previous visits were reviewed. Prior tests were taken into account with medical decision making and resource ut ilization, independent historian/historians were used to obtain complete medical history. I independently interpreted the test that were performed, results were reviewed by me and considered findings on radiology if ordered. Medical management and examination interpretation discussions were had by me with other qualified healthcare professionals as indicated for the patient's car e. Procedure Procedure Dictation: Procedure note-laceration repair Performing Physician -Sandee MCKENNA [id number] upper lip about 1 inches in size with gaping wound and bleeding Premedication and anesthesia-1% lidocaine local Procedure-extensive saline irrigation was done and the laceration was cleaned thoroughly and prepped. After cleansing Dermabond was applied and both the edges of the laceration were apposed and sterile dressing was applied Hemostasis was achieved wound was cleansed after the Dermabond and Steri-Strips and sterile dressing applied. Patient tolerated the procedure extremely well without any immediate complications. Patient was instructed on wound care Wound Location: face Wound Length (cm): 1 Wound's Depth, Shape: linear Wound Explored: clean Irrigated w/ Saline (ccs): 15 Betadine Prep?: Yes Wound Debrided: minimal Wound Repaired With: Dermabond Layer Closure?: No Sterile Dressing Applied?: Yes Problem List Problem List: (1) Contusion of right knee (2) Contusion of right wrist (3) Fall (4) UTI (urinary tract infection) DX & DISP Disposition: Discharge Departure Impression: Primary Impression: Contusion of right knee Additional Impressions: Contusion of right wrist, Fall, UTI (urinary tract infection) Condition: Stable Additional Instructions: Patient and the caregiver have been informed of all the diagnostic tests and the imaging conducted during the today's visit to the emergency room and has verbalized understanding of the results I have personally reviewed and interpreted all diagnostic exams performed here in the ER today as well as the vital signs documented by the nursing staff. The patient is now being discharged to home and should follow up with the primary care physician or the specialist as directed by the ER staff. Follow-up with primary care provider in 1 to 2 days. Take medications as directed here in the emergency room. Okay to continue home medications unless otherwise discussed during your visit in the emergency room today. Return to your nearest emergency room if symptoms worsen or if there is no improvement. Call 911 if you need immediate assistance. Take Tylenol or Motrin over-the-co unter as needed and if no contraindications are present. Increase oral hydration. A wound culture or urine culture was ordered here in the emergency room department please follow-up with primary care provider and advise them to get repeat ports from our facility. If you had any Mani wrap/splints that were applied here, please do not remove them until you see your primary care or specialty. Wound care instructions given Resources for vestibular therapy were also given to the patient Referrals: GEORGE MONCADA MD (PCP) KHUSHBOO CARABALLO MD Nov 11, 2024 22:09
[2024-11-11 22:19] LABS: IMMATURE GRANULOCYTE ABSOLUTE 0.00 K/uL (0-1); NUCLEATED RED BLOOD CELLS 0.0 % (0.0-0.19); PLATELET COUNT (AUTO) 203 K/uL (130-400); RED BLOOD CELL COUNT(AUTO) 4.18 MIL/uL (4.00-5.50); RED CELL DISTRIBUTION WIDTH 13.9 % (11.0-15.5); WHITE BLOOD COUNT (AUTO) 6.3 K/uL (4.8-10.8)
[2024-11-11 22:29] LABS: CREATININE 0.9 mg/dL (0.5-1.0); GLOMERULAR FILTR. RATE CALC 68.0 mL/min (>90); GLUCOSE,RANDOM 95.0 mg/dL (70-105); SODIUM SERUM 138.0 mmol/L (136-145); UREA NITROGEN, BLOOD 17.0 mg/dL (7-18)
[2024-11-11 22:35] LABS: APPEARANCE,URINE CLEAR (CLEAR); GLUCOSE, URINE (UA) NEGATIVE (NEGATIVE); LEUKOCYTE ESTERASE ,URINE 500 Leu/uL (NEGATIVE); NITRATE,URINE NEGATIVE (NEGATIVE); OCCULT BLOOD,URINE NEGATIVE (NEGATIVE)
[2024-11-11 22:38] LABS: ADD UA MICROSCOPIC YES
[2024-11-11 22:43] LABS: SQUAMOUS EPITHELIAL CELL,UR RARE /HPF (0-2)
--- NOTE | 2024-11-11 23:24 | HMCIMG ---
EXAM: CR Right Wrist, 3 views CLINICAL HISTORY: Injury. COMPARISON: None provided. FINDINGS: No acute fracture or aggressive appearing osseous lesion. The carpal bones demonstrate normal alignment. Mild osteopenia. Mild osteoarthritis. There is a 5 mm well-corticated accessory ossicle distal to the ulnar steroid process. The soft tissues are unremarkable. IMPRESSION: No acute bony abnormality is evident. Mild osteopenia. Mild osteoarthritis. /[place]
--- NOTE | 2024-11-11 23:26 | HMCIMG ---
EXAM: CR Right Knee, 3 views CLINICAL HISTORY: Pain. COMPARISON: None provided. FINDINGS: No acute fracture or aggressive appearing osseous lesion. Mild osteopenia. Mild tricompartmental knee joint osteoarthritis. Nonspecific degenerative calcifications medial to the medial tibial plateau. There is no joint effusion appreciated. IMPRESSION: No acute bony abnormality is evident. Mild osteopenia. Mild tricompartmental knee joint osteoarthritis. Nonspecific degenerative calcifications medial to the medial tibial plateau. /Friend
[2024-11-11] MEDS: OCTYL 2-CYANOACRYLATE 1 EACH TP ONE ×2 (23:45→23:46)
[2024-11-12 00:07] VITALS: BP 183/77; PULSE 69; RESP 18; TEMP 98.5; O2SAT 96
[2024-11-12] MEDS ORDERED: NITR100C4 PO (00:07)
== END 2024-11-12 00:12 | disposition home or self-care (01) ==
LOC: EDH 21:56
DX: S01.511A Laceration without foreign body of lip, initial encounter (principal); S60.211A Contusion of right wrist, initial encounter; S80.01XA Contusion of right knee, initial encounter; N39.0 Urinary tract infection, site not specified; E03.9 Hypothyroidism, unspecified; F32.A Depression, unspecified; E78.00 Pure hypercholesterolemia, unspecified; I25.10 Atherosclerotic heart disease of native coronary artery without angina pectoris; Z88.8 Allergy status to other drugs, medicaments and biological substances; Z79.1 Long term (current) use of non-steroidal anti-inflammatories (NSAID); Z79.890 Hormone replacement therapy; Z79.52 Long term (current) use of systemic steroids; Z95.1 Presence of aortocoronary bypass graft; W18.39XA Other fall on same level, initial encounter; Y93.89 Activity, other specified; Y92.89 Other specified places as the place of occurrence of the external cause; Y99.8 Other external cause status
CPT/HCPCS: 99283; 80048; 85025; 87086; 81001; 36415; 73562; 73110; 96372; 12011; J1885